=== PATIENT | male | born 1950 | race African-American/Black ===

== ENCOUNTER 2018-01-09 17:12 | Emergency (ER) | payer OTHER ==
[~2018-01-09] VITALS: Ht 165.1 cm; Wt 65.8 kg
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
[2018-01-09] MEDS ORDERED: IBUPROFEN600 MG ORAL (17:53)
[2018-01-09] MEDS ORDERED: Norco 5mg/325mg tab ORAL ONE (18:00)
[2018-01-09 18:03] VITALS: BP 121/70
[2018-01-09 19:10] VITALS: BP 121/70
--- NOTE | 2018-01-10 09:17 | Diagnostic Imaging Report ---
Indication: Headache Technique: Contiguous 5 mm thick transaxial imaging of the head obtained in a Siemens Sensation [address] scanner. Soft tissue and bone windows generated. Automatic Exposure Control was utilized. Total Dose length Product (DLP): 1361.[address] Dose Index Volume (CTDIvol): 70.38 mGy Comparison: none Findings: The size and configuration of the cortical sulci, basal cisterns, and ventricles are within normal limits for age. There is no mass effect, midline shift, or edema identified. There is no evidence of acute hemorrhage or abnormal intra-axial or extra-axial fluid collections. The bones and soft tissues are unremarkable. Impression: No mass effect, edema or acute bleed. [facility] has communicated the preliminary results to the Emergency Department. Their findings are largely concordant with this report. The CT scanner at [facility] is accredited by the [employer] and the scans are performed using dose optimization techniques as appropriate to a performed exam including Automatic Exposure control.
== END 2018-01-09 19:15 | disposition home or self-care (01) ==
LOC: EMR 18:42
DX: S00.01XA Abrasion of scalp, initial encounter (principal); V43.52XA Car driver injured in collision with other type car in traffic accident, initial encounter; Y92.410 Unspecified street and highway as the place of occurrence of the external cause; Y99.0 Civilian activity done for income or pay; R51 Headache
CPT/HCPCS: 70450; 99284